=== PATIENT | female | born 1990 | race Caucasian/White ===

== ENCOUNTER 2022-04-15 17:55 | Emergency (ER) | payer OTHER ==
[~2022-04-15] VITALS: Ht 157.5 cm; Wt 101.6 kg
[2022-04-15 17:58] VITALS: BP_SYST 123
[2022-04-15 23:56] LABS: BASOPHILS # (AUTO) 0.1 K/uL (0.0-0.2); BASOPHILS % (AUTO) 0.7 % (0.0-2.0); EOSINOPHILS # (AUTO) 0.2 K/uL (0.0-0.4); EOSINOPHILS % (AUTO) 1.6 % (0.0-4.0); HEMATOCRIT 36.6 % (36-48); HEMOGLOBIN 11.9 g/dL (12.0-16.0); LYMPHOCYTES # (AUTO) 3.6 K/uL (1.0-5.5); LYMPHOCYTES % (AUTO) 31.8 % (20.5-51.5); MEAN CORPUSCULAR HEMOGLOBIN 25 pg (27-31); MEAN CORPUSCULAR HGB CONC 33 % (32-36); MEAN CORPUSCULAR VOLUME 78 fL (79.0-98.0); MONOCYTES # (AUTO) 0.6 K/uL (0.0-1.0); MONOCYTES % (AUTO) 5.5 % (1.7-9.3); NEUTROPHILS # (AUTO) 6.9 K/uL (1.8-7.7); NEUTROPHILS % (AUTO) 60.4 % (40.0-70.0); PLATELET COUNT (AUTO) 376 K/uL (130-430); RED CELL DISTRIBUTION WIDTH 14.8 % (9.0-15.0); WHITE BLOOD COUNT (AUTO) 11.4 K/uL (4.8-10.8)
[2022-04-16 00:27] LABS: ANION GAP 8 (5-15); CALCIUM 9.1 mg/dL (8.4-11.0); CHLORIDE 100 mmol/L (98-107); CREATININE 0.78 mg/dL (0.55-1.30); GLUCOSE 108 mg/dL (70-99); POTASSIUM 3.6 mmol/L (3.5-5.1); SODIUM SERUM 137 mmol/L (136-145); UREA NITROGEN, BLOOD 11 mg/dL (8-21)
[2022-04-16 00:36] LABS: ALANINE AMINOTRANSFERASE 23 U/L (12-78); ALBUMIN 3.9 g/dL (3.4-4.8); ASPARTATE AMINOTRANSFERASE 16 U/L (10-37); TOTAL BILIRUBIN 0.3 mg/dL (0.0-1.0)
[2022-04-16 00:46] LABS: GFR AFRICAN AMERICAN 111 mL/min (>90)
[2022-04-16] MEDS ORDERED: ALBMDI INH (01:07)
[2022-04-16] MEDS ORDERED: PRED20TA PO (01:07)
[2022-04-16] MEDS ORDERED: FLUT1DIS3 IH (01:07)
[2022-04-16 01:15] VITALS: BP_SYST 115
== END 2022-04-16 01:15 | disposition home or self-care (01) ==
LOC: SED 17:55
DX: J45.909 Unspecified asthma, uncomplicated (principal); R06.02 Shortness of breath; Z79.899 Other long term (current) drug therapy
CPT/HCPCS: 36415; 36600; 71046-TC; 80053; 81025; 82550; 82803-TC; 84484; 85025; 85379; 93005; 99285

== ENCOUNTER 2022-12-20 08:12 | Emergency (ER) | payer OTHER ==
[~2022-12-20] VITALS: Ht 157.5 cm; Wt 100.7 kg
[~2022-12-20 08:12] MED LIST: ALBMDI INH; FLUT1DIS3 IH; PRED20TA PO
--- NOTE | 2022-12-20 08:20 | NUR ---
Pt brought by self, A&Ox4, pt presents to ER with sore throat x 3 days, pt is 18 weeks , pt states she got strep test yesterday and was negative, VSS, respirations even and unlabored.
[2022-12-20 08:29] VITALS: BP_SYST 127
--- NOTE | 2022-12-20 08:51 | NUR ---
COVID AND FLU SWABBED AND SENT TO LAB
--- NOTE | 2022-12-20 09:03 | NUR ---
DR BENDER AT BEDSIDE FOR EVALUATION
--- NOTE | 2022-12-20 09:34 | NUR ---
Patient given written and verbal discharge instructions and verbalizes understanding. ER MD discussed with patient the results and treatment provided. Patient in stable condition. ID arm band removed. Rx of NONE given. Patient educated on pain management and to follow up with PMD. Pain Scale 0/10. Opportunity for questions provided and answered. Medication side effect fact sheet provided.
== END 2022-12-20 09:34 | disposition home or self-care (01) ==
LOC: SED 08:12
DX: O99.512 Diseases of the respiratory system complicating pregnancy, second trimester (principal); J02.9 Acute pharyngitis, unspecified; Z3A.18 18 weeks gestation of pregnancy; Z79.899 Other long term (current) drug therapy; Z20.822 Contact with and (suspected) exposure to COVID-19
CPT/HCPCS: 36415; 99283